=== PATIENT | female | born 1995 | race Caucasian/White ===

== ENCOUNTER 2016-08-08 14:32 | Emergency (ER) | payer BC ==
[2016-08-08 15:13] VITALS: BP 104/77
--- NOTE | 2016-08-08 15:34 | UC ---
Throat Pain/Nasal Tone HPI - HPI Summary HPI Summary: 21 female presents with complaints of sore throat that began 1 week ago and has not gone away. Patient was diagnosed with strep approximately 1 month ago and a week after that diagnosed with mono. Patient states she dealt with the mono for about 3 weeks and was starting to feel better until this past week. She was doing apple cider vinegar home remedies but it did not help and she felt that it made it worse because it burned her throat. States she has some ear pain that she thinks is radiating from her tonsils and minimal nasal congestion. Denies fever/chills. States she feels fine besides the sore throat that is minimal compared to her last episodes. Denies nausea/vomiting and any other medical problems. - History of Current Complaint Chief Complaint: UCGeneralIllness Stated Complaint: SORE THROAT Time Seen by Provider: 08/08/16 15:14 Hx Obtained From: Patient Hx Last Menstrual Period: 07/18/16 ?: No Onset/Duration: Sudden Onset, Lasting Weeks Severity: Mild Pain Intensity: 4 Pain Scale Used: 0-10 Numeric Cough: None Associated Signs & Symptoms: Positive: Dysphagia, Nasal Discharge Related History: Seasonal Allergies - Allergies/Home Medications Allergies/Adverse Reactions: Allergies Allergy/AdvReac Type Severity Reaction Status Date / Time No Known Allergies Allergy Verified 08/08/16 15:13 PMH/Surg Hx/FS Hx/Imm Hx Endocrine History Of: Denies: Diabetes Cardiovascular History Of: Denies: Hypertension Respiratory History Of: Denies: Asthma - Surgical History Surgical History: None - Family History Known Family History: Negative: Diabetes, Renal Disease - Social History Alcohol Use: Occasionally Substance Use Type: None Smoking Status (MU): Never Smoked Tobacco - Immunization History Vaccination Up to Date: Yes Review of Systems Constitutional: Negative Skin: Negative Eyes: Negative ENT: Sore Throat, Nasal Discharge Respiratory: Negative Cardiovascular: Negative Gastrointestinal: Negative Motor: Negative Neurovascular: Negative Musculoskeletal: Negative Neurological: Negative All Other Systems Reviewed And Are Negative: Yes Physical Exam Triage Information Reviewed: Yes Appearance: Well-Appearing, No Pain Distress, Well-Nourished Vital Signs: Initial Vital Signs Temp 98.7 F 08/08/16 15:09 Pulse 95 08/08/16 15:09 Resp 16 08/08/16 15:09 BP 104/77 08/08/16 15:09 Pulse Ox 100 08/08/16 15:09 Vital Signs Reviewed: Yes Eyes: Positive: Conjunctiva Clear ENT: Positive: Hearing grossly normal, Pharyngeal erythema - minimal, Nasal congestion, TMs normal, Tonsillar swelling - minimal b/l, Other: - uvula midline , airway patent, small papule bumps noted on posterior tongue and some on pharynx, likely viral. Negative: Nasal drainage, Tonsillar exudate, Trismus, Muffled/hoarse voice Dental: Positive: Cervical Lymphadenopathy. Negative: Percussion Tenderness @ Neck: Positive: Supple, Nontender Respiratory: Positive: Chest non-tender, Lungs clear, Normal breath sounds, No respiratory distress, No accessory muscle use Cardiovascular: Positive: RRR, No Murmur, Pulses Normal Abdomen Description: Positive: Nontender, No Organomegaly, Soft Bowel Sounds: Positive: Present Musculoskeletal: Positive: Strength Intact, ROM Intact Neurological Exam: Normal Skin Exam: Normal Throat Pain/Nasal Course/Dx - Course Course Of Treatment: strep obtained due to patient preference and negative. patient will be treated symptomatically as this is probably viral or lingering from recent strep then mono diagnosis. aware of worsening signs and symptoms to watch out for. - Differential Dx/Diagnosis Differential Diagnosis/HQI/PQRI: Influenza, Laryngitis, Mononucleosis, Otitis Media, Pharyngitis, Tonsillitis, URI, Other Provider Diagnoses: pharyngitis, seasonal allergies Discharge - Discharge Plan Condition: Stable Disposition: HOME Patient Education Materials: Pharyngitis (ED) Referrals: Non Staff,Doctor [Primary Care Provider] - Additional Instructions: Keep drinking plenty of fluids and doing salt water swishes. Avoid spicy and citrus flavored drinks/foods as it may irritate your throat. Use Chloraseptic spray OTC to help soothe the throat. Ibuprofen for pain and inflammation. Zyrtec for seasonal allergies (nasal congestion, post nasal drip, ear fullness). If your symptoms worsen or do not improve please return. Avoid alcohol and recommend taking vitamins. Follow up with health center.
== END 2016-08-08 15:51 | disposition home or self-care (01) ==
LOC: UCCORT 14:32
DX: J02.9 Acute pharyngitis, unspecified (principal); J30.2 Other seasonal allergic rhinitis
CPT/HCPCS: 87651; 99211; G0463